=== PATIENT | male | born 1965 | race Caucasian/White ===

== ENCOUNTER → 2017-09-22 | Outpatient (CLI) | payer BC ==
[~2017-09-22] MED LIST: DIATRIZOATE MEGL/DIATRIZOA SOD 30 ML BTL PO ONE; IOPAMIDOL 370 MG/ML 200 ML INFUS..BTL INJ ONE; SODIUM CHLORIDE 0.9% 50ML 50 ML ONE
[2017-09-22 09:14] LABS: BLOOD UREA NITROGEN 20 mg/dL (7-26); BUN/CREATININE RATIO 21 (6-25); CREATININE, SERUM 0.95 mg/dL (0.72-1.25); EST GLOMERULAR FILTRATION RATE > 60 ML/MIN (60-)
--- NOTE | 2017-09-22 11:32 | Diagnostic Imaging Report ---
PROCEDURE:CT PELVIS WITH CONTRAST COMPARISON:None. INDICATIONS:LEFT GROIN PAIN TECHNIQUE:Routine protocol Volumetric CT pelvis after administration of 100 mL Isovue 370 intravenous contrast and 900 mL positive enteric contrast. Multiplanar reformatted images. DLP: 404.41 FINDINGS: Image segments of the bowel, ureters and urinary bladder, prostate seminal vesicles are normal. Mild sigmoid diverticulosis. No free fluid. Regional vasculature, skeleton and soft tissues are normal. L5-S1 degenerative disc disease with near complete loss of disc space height [id number] apposition. Posterior disc osteophyte complex with gross neural foramen patency. CONCLUSION: 1. No conspicuous etiology for groin pain. 2. Degenerative disc disease most notable at L5-S1. 3. Mild sigmoid diverticulosis. Dictated by: Jonathan Zhang M.D. on 09/22/2017 at 11:33 Electronically approved by: Jonathan Zhang M.D. on 09/22/2017 at 11:33
== END ==
LOC: CT 08:32
PROVIDERS: ATTEND Surgery
DX: R10.32 Left lower quadrant pain (principal)
CPT/HCPCS: 36415; 72193; 82565; 84520; Q9967

== ENCOUNTER 2021-02-21 15:33 | Emergency (ER) | payer BC ==
[~2021-02-21] VITALS: Ht 185.4 cm; Wt 97.5 kg
[2021-02-21] MEDS ORDERED: CASIRIVIMAB/IMDEVIMAB 10 ML in SODIUM CHLORIDE 0.9% 100 ML IV ONE (15:45)
== END 2021-02-21 16:49 | disposition home or self-care (01) ==
LOC: ER 15:37
DX: U07.1 COVID-19 (principal); I10 Essential (primary) hypertension; Z85.828 Personal history of other malignant neoplasm of skin; Z95.5 Presence of coronary angioplasty implant and graft
CPT/HCPCS: 99283; J7050